=== PATIENT | male | born 1985 | race Caucasian/White ===

== ENCOUNTER 2019-02-06 21:24 | Emergency (ER) | payer OTHER ==
[2019-02-06 21:40] VITALS: BP 141/97; PULSE 104; RESP 18; TEMP 98.3
--- NOTE | 2019-02-06 22:05 | ED ---
Extremity Problem HPI - General Chief complaint: Extremity Problem,Nontraumatic Stated complaint: Leg pain Source: patient Mode of arrival: ambulatory Limitations: no limitations - History of Present Illness Initial comments: Michael is a pleasant previously healthy 33-year-old gentleman who presents the emergency department today for evaluation of a bruise in the left popliteal f mary. Patient reports that today he noted this tender bruise, he didn't recall any specific trauma and we discussed this finding with family members a told him he could possibly have a blood clot just come to the ER for evaluation. Patient denies any history of blood clots or clotting disorder, he denies any family history of clotting disorder, he denies any recent immobilization, he is not on any estrogen supplements. Patient reports he doesn't recall any specific trauma but is a physically active gentleman. - Related Data Allergies Allergy/AdvReac Type Severity Reaction Status Date / Time shellfish derived [Shellfish] Allergy Rash/Hives Verified 02/06/19 21:40 Review of Systems ROS Statement: Those systems with pertinent positive or pertinent negative responses have been documented in the HPI. ROS Other: All systems not noted in ROS Statement are negative. Past Medical History Past Medical History: Hypertension History of Any Multi-Drug Resistant Organisms: None Reported Past Surgical History: Orthopedic Surgery Past Psychological History: No Psychological Hx Reported Smoking Status: Never smoker Past Alcohol Use History: None Reported Past Drug Use History: None Reported General Exam - General Exam Comments Initial Comments: Physical Exam GENERAL: Patient is well-developed and well-nourished. Patient is nontoxic and well- hydrated and is in no distress. HENT: Normocephalic, Atraumatic. Poor dentition EYES: PERRL, EOMI PULMONARY: Unlabored respirations. CARDIOVASCULAR: There is a regular rate and rhythm without any murmurs gallops or rubs. ABDOMEN: Nondistended SKIN: Hematoma approximately 3 cm in diameter proximal to the left popliteal fossa on the medial aspect of posterior knee, tender to palpation, no erythema induration or signs of infection or abscess : Deferred NEUROLOGIC: Patient is alert and oriented x3. Moving all extremities spontaneously MUSCULOSKELETAL: Normal extremities with adequate strength and full range of motion. No lower extremity swelling or edema. No calf tenderness. Normal gait PSYCHIATRIC: Normal psychiatric evaluation Limitations: no limitations Course Vital Signs 02/06/19 21:35 Temperature 98.3 F Pulse Rate 104 H Respiratory 18 Rate Blood Pressure 141/97 O2 Sat by Pulse 99 Oximetry Medical Decision Making - Medical Decision Making The patient was seen and evaluated upon arrival to the emergency department. History and physical exam are consistent with a hematoma. Patient has no lower extremity edema no risk factors for DVT Advised the patient at this time I do not feel a ultrasound is indicated as very unlikely he would have a DVT and that he simply has a hematoma likely from some trauma he does not recall patient agrees with this. Patient feels reassured and states he would like to leave as soon as possible so that the room to be used for somebody who really needs it. All questions pertaining care were answered return parameters discussed patient was discharged home in stable condition Disposition Clinical Impression: Hematoma Disposition: HOME SELF-CARE Condition: Stable Instructions (If sedation given, give patient instructions): Hematoma (ED) Is patient prescribed a controlled substance at d/c from ED?: No Referrals: Maria Dolores Mejia MD [Primary Care Provider] - 1-2 days
== END 2019-02-06 22:13 | disposition home or self-care (01) ==
LOC: EC 21:24
DX: S80.02XA Contusion of left knee, initial encounter (principal); Z91.013 Allergy to seafood; X58.XXXA Exposure to other specified factors, initial encounter
CPT/HCPCS: 99283

== ENCOUNTER 2020-02-01 23:03 | Emergency (ER) | payer OTHER ==
[2020-02-01 23:12] VITALS: TEMP 98
--- NOTE | 2020-02-01 23:45 | XR ---
EXAMINATION TYPE: XR ribs RT w pa chest xray DATE OF EXAM: 02/01/2020 COMPARISON: None HISTORY: Rib pain TECHNIQUE: FINDINGS: Heart and mediastinum are normal. Lungs are clear. Diaphragm is normal. Pulmonary vasculari ty is normal. On the oblique view there appears to be fracture of the anterior right sixth and seventh ribs. IMPRES DAVI: Nondisplaced anterior right rib fractures. No cardiopulmonary disease.
[2020-02-02] MEDS ORDERED: SODIUM CHLORIDE 0.9% 500 ML 500 ML IV ONE (00:17)
[2020-02-02 00:38] LABS: Basophils # (A) 0.1 k/uL (0-0.2); Basophils % (A) 1 %; Eosinophils # (A) 0.3 k/uL (0-0.7); Eosinophils % (A) 2 %; HGB 14.5 gm/dL (13.0-17.5); Lymphocytes # (A) 1.4 k/uL (1.0-4.8); Lymphocytes % (A) 14 %; MCH 27.4 pg (25.0-35.0); MCHC 32.1 g/dL (31.0-37.0); MCV 85.2 fL (80.0-100.0); Mean Platelet Volume 7.1; Monocytes # (A) 0.6 k/uL (0-1.0); Monocytes % (A) 6 %; Neutrophils # (A) 7.7 k/uL (1.3-7.7); Neutrophils % (A) 76 %; Platelet Count 220 k/uL (150-450); RBC 5.29 m/uL (4.30-5.90); RDW 13.5 % (11.5-15.5); WBC 10.1 k/uL (3.8-10.6)
[2020-02-02 00:46] LABS: ALT 30 U/L (4-49); AST 27 U/L (17-59); African American GFR (CKD) >90 (>60 ml/min/1.73 sqM); Albumin 4.5 g/dL (3.5-5.0); Alkaline Phosphatase 54 U/L (38-126); Anion Gap 7 mmol/L; Blood Urea Nitrogen 12 mg/dL (9-20); Calcium 9.7 mg/dL (8.4-10.2); Carbon Dioxide 27 mmol/L (22-30); Chloride 106 mmol/L (98-107); Glucose 105 mg/dL (74-99); Non-African American GFR(CKD) >90 (>60 ml/min/1.73 sqM); Potassium 3.7 mmol/L (3.5-5.1); Sodium 140 mmol/L (137-145); Total Bilirubin 0.4 mg/dL (0.2-1.3); Total Protein 6.8 g/dL (6.3-8.2)
--- NOTE | 2020-02-02 01:10 | CT ---
EXAMINATION TYPE: CT chest angio for PE DATE OF EXAM: 02/02/2020 COMPARISON: HISTORY: R/O PE, Chest pain, Rt side rib pain CT DLP: 401.60 mGycm Automated exposure control for dose reduction was used. CONTRAST: Performed with IV Contrast, patient injected with 70 mL of Isovue 370. There are 3-D post processed images. The lungs are clear of infiltrate. There is no pleural effusion or pneumothorax. Heart size is normal . There are no hilar masses. There is no mediastinal adenopathy. There is intact thoracic aorta. There is no aneurysm or dissection. There is normal contrast opacification of the pulmonary arteries. There are no filling defects. Thoracic vertebra have normal spacing and alignment. There is no compression fracture. The upper abdo venice soft tissues are intact. The ribs appear intact. Shoulder joints appear intact. IMPRESSION: Negative exam. No evidence of pulmonary embolism. I do not see a cause for right-sided rib pain.
--- NOTE | 2020-02-02 01:14 | ED ---
Recheck HPI - General Chief Complaint: Recheck/Abnormal Lab/Rx Stated Complaint: Rib Pain Time Seen by Provider: 02/01/20 23:39 Source: patient Mode of arrival: ambulatory Limitations: no limitations - History of Present Illness Initial Comments: 34-year-old male presenting today for chief complaint of right rib pain patient states the pain occurred after tubing be states he is not sure if it's from hitting the water of the tube x 3 days. Patient states his nose and occasional his about hour felt lightheaded today like he was going to pass out. Patient states he takes a deep breath there is very localized anterior right rib pain mid chest. Patient has a left-sided chest pain or pressure. Patient denies any leg swelling denies any syncopal episodes. Remaining review of systems negative upon arrival patient appears well no acute distress he denies any injury to the head and neck low back legs or upper extremity. - Related Data Allergies Allergy/AdvReac Type Severity Reaction Status Date / Time shellfish derived [Shellfish] Allergy Rash/Hives Verified 02/01/20 23:12 Review of Systems ROS Statement: Those systems with pertinent positive or pertinent negative responses have been documented in the HPI. ROS Other: All systems not noted in ROS Statement are negative. Past Medical History Past Medical History: Hypertension History of Any Multi-Drug Resistant Organisms: None Reported Past Surgical History: Orthopedic Surgery Past Psychological History: Anxiety Smoking Status: Light tobacco smoker Past Alcohol Use History: None Reported Past Drug Use History: Marijuana General Exam - General Exam Comments Initial Comments: General: The patient is awake and alert, in no distress, and does not appear acutely ill. Eye: Pupils are equal, round and reactive to light, extra-ocular movements are intact. No nystagmus. There is normal conjunctiva bilaterally. No signs of icterus. Cardiovascular: There is a regular rate and rhythm. No murmur, rub or gallop is appreciated. Respiratory: Lungs are clear to auscultation, respirations are non-labored, breath sounds are equal. No wheezes, stridor, rales, or rhonchi. Musculoskeletal: Normal inspection of the chest, back. Pain to palpation around rib #6, no flail chest. Normal ROM, no tenderness. Strength 5/5. Sensation intact. Radial pulses equal bilaterally 2+. Neurological: A&O x 3. CN II-XII intact grossly, There are no obvious motor or sensory deficits. Coordination appears grossly intact. Speech is normal. Skin: Skin is warm and dry and no rashes or lesions are noted. Psychiatric: Cooperative, appropriate mood & affect, normal judgment. Limitations: no limitations Course Vital Signs 02/01/20 02/02/20 23:10 02:20 Temperature 98 F 98 F Pulse Rate 103 H 80 Respiratory 20 16 Rate Blood Pressure 135/86 142/98 O2 Sat by Pulse 100 96 Oximetry Medical Decision Making - Medical Decision Making 34-year-old male presented for right anterior rib pain on x-ray there was an area suspicious for nondisplaced rib fractures of 6 and 7. However there is no noted fractures observed on CT angiography. There is no pneumothorax. I do suspect that there is a possible nondisplaced fractures. Patient's vital signs stable EKG within normal limits. He does not appear in respiratory distress minimal splinting patient be provided incentive spirometer to encourage deep breaths and prevent splinting. Discussed importance of return for shortness of breath/fevers, worsening pain. additioanl presyncopal episdoes. Patient verbalized understanding. Case discussed wtih Dr Acevedo who is agreeable to care plan and discharge at this time. - Lab Data Result diagrams: 02/02/20 00:26 02/02/20 00:26 Lab Results 02/02/20 02/02/20 Range/Units 00:26 00:26 WBC 10.1 (3.8-10.6) k/uL RBC 5.29 (4.30-5.90) m/uL Hgb 14.5 (13.0-17.5) gm/dL Hct 45.0 (39.0-53.0) % MCV 85.2 (80.0-100.0) fL MCH 27.4 (25.0-35.0) pg MCHC 32.1 (31.0-37.0) g/dL RDW 13.5 (11.5-15.5) % Plt Count 220 (150-450) k/uL Neutrophils % 76 % Lymphocytes % 14 % Monocytes % 6 % Eosinophils % 2 % Basophils % 1 % Neutrophils # 7.7 (1.3-7.7) k/uL Lymphocytes # 1.4 (1.0-4.8) k/uL Monocytes # 0.6 (0-1.0) k/uL Eosinophils # 0.3 (0-0.7) k/uL Basophils # 0.1 (0-0.2) k/uL Sodium 140 (137-145) mmol/L Potassium 3.7 (3.5-5.1) mmol/L Chloride 106 (98-107) mmol/L Carbon Dioxide 27 (22-30) mmol/L Anion Gap 7 mmol/L BUN 12 (9-20) mg/dL Creatinine 0.95 (0.66-1.25) mg/dL Est GFR (CKD-EPI)AfAm >90 (>60 ml/min/1.73 sqM) Est GFR (CKD-EPI)NonAf >90 (>60 ml/min/1.73 sqM) Glucose 105 H (74-99) mg/dL Calcium 9.7 (8.4-10.2) mg/dL Total Bilirubin 0.4 (0.2-1.3) mg/dL AST 27 (17-59) U/L ALT 30 (4-49) U/L Alkaline Phosphatase 54 (38-126) U/L Total Protein 6.8 (6.3-8.2) g/dL Albumin 4.5 (3.5-5.0) g/dL Disposition Clinical Impression: Right rib fracture, Pre-syncope Disposition: HOME SELF-CARE Condition: Good Instructions (If sedation given, give patient instructions): Rib Fracture (ED) Additional Instructions: Please use medication as discussed. Please follow-up with family doctor in the next 2 days. Please return to emergency room if the symptoms increase or worsen or for any other concerns. Is patient prescribed a controlled substance at d/c from ED?: No Referrals: Maria Dolores Mejia MD [Primary Care Provider] - 1-2 days Time of Disposition: 01:14
[2020-02-02 02:32] VITALS: BP 142/98; PULSE 80; RESP 16
== END 2020-02-02 02:20 | disposition home or self-care (01) ==
LOC: EC 23:03
DX: S22.41XA Multiple fractures of ribs, right side, initial encounter for closed fracture (principal); F17.200 Nicotine dependence, unspecified, uncomplicated; R55 Syncope and collapse; Z91.013 Allergy to seafood; X58.XXXA Exposure to other specified factors, initial encounter
CPT/HCPCS: 36415; 71275; 80053; 85025; 93005; 99284

== ENCOUNTER → 2022-05-23 | Outpatient (CLI) | payer OTHER ==
--- NOTE | 2022-05-24 08:26 | CT ---
EXAMINATION TYPE: CT wrist RT wo con CT DLP: 160 mGycm, Automated exposure control for dose reduction was used. DATE OF EXAM: 05/23/2022 6:41 PM COMPARISON: None CLINICAL INDICATION:Male, 36 years old with history of S62.141A, R WRIST DISP FX OF BODY OF HAMATE MARTINEZ NE, RT wrist/ hand pain and swelling. hamate bone fx. per order attent to metacarpl bases. TECHNIQUE: Axial images were obtained of the right wrist. Additional coronal and sagittal reformatte d images and soft tissue and bone window were obtained for review. 3-D reconstruction was created on a separate workstation. Contrast used: None. Oral contrast used: None. FINDINGS: There is an acute fracture through the fourth and fifth digit metacarpal bases with intra-a rticular extension, best appreciated on series 9 image 61. Comminuted fracture of the posterior aspec t of the hamate bone. With intra-articular extension. Remote appearing fracture of the hook of the hamate bone with well-corticated fragment. IMPRESSION: 1. Comminuted fracture of the posterior aspect of the hamate with remote appearing fracture of the h ook of the hamate bone with well-corticated fragment. 2. Fracture through the fourth and fifth digit metacarpal bases with intra-articular extension
== END | disposition home or self-care (01) ==
LOC: RADCTMAIN 18:20
PROVIDERS: ATTEND Orthopaedic Surgery Hand Surgery
DX: S62.141A Displaced fracture of body of hamate [unciform] bone, right wrist, initial encounter for closed fracture (principal); X58.XXXA Exposure to other specified factors, initial encounter

== ENCOUNTER 2024-09-29 23:16 | Emergency (ER) | payer OTHER ==
[2024-09-30] MEDS: SODIUM CHLORIDE 0.9% 1,000 ML IV ONE (00:09)
[2024-09-30] MEDS: SODIUM CHLORIDE 0.9% 500 ML 500 ML IV ONE (00:09)
[2024-09-30] MEDS: diphenhydrAMINE 50 MG/ML 1 ML VIAL IVP STA (00:11)
[2024-09-30] MEDS: KETOROLAC 15 MG/ML 1 ML VIAL IVP STA (00:12)
[2024-09-30] MEDS: METOCLOPRAMIDE 5 MG/ML 2 ML VIAL IVP STA (00:15)
--- NOTE | 2024-09-30 00:21 | ED ---
Chest Pain HPI - General Chief Complaint: Chest Pain Stated Complaint: Nausea,Chest tightness, Hallucinations Time Seen by Provider: 09/29/24 23:22 Source: patient, RN notes reviewed Mode of arrival: ambulatory Limitations: no limitations - History of Present Illness Initial Comments: 38-year-old male presents emergency department chief complaint of chest comfort, migraine headache, body aches slight cough. Patient states he is has not felt well since [place] this morning he normally has migraines is not a typical headache for him. Patient states he was seen in urgent care had nasal swab which was negative states the headache has waxed and waned he has not taken anything so far other than earlier Motrin. Patient reports no known fever states chest pain is anterior is worse with movement there is a back pain patient does have a history of hypertension on lisinopril he states he occasionally smokes. Patient denies any prior cardiac disease. - Related Data Allergies Allergy/AdvReac Type Severity Reaction Status Date / Time shellfish derived [Shellfish] Allergy Rash/Hives Verified 09/29/24 23:20 Review of Systems ROS Statement: Those systems with pertinent positive or pertinent negative responses have been documented in the HPI. ROS Other: All systems not noted in ROS Statement are negative. EKG Findings - EKG Comments: EKG Findings:: EKG performed at 23: 25 sinus tachycardia rate of 101 MI 132 QRS 89 QT/QTc 320/[address] elevation depression normal axis. - EKG Results: EKG: interpreted by JOSE J Past Medical History Past Medical History: Hypertension History of Any Multi-Drug Resistant Organisms: None Reported Past Surgical History: Orthopedic Surgery Past Psychological History: Anxiety Past Alcohol Use History: Occasional Past Drug Use History: Marijuana General Exam Limitations: no limitations General appearance: alert, in no apparent distress Head exam: Present: atraumatic, normocephalic, normal inspection Eye exam: Present: normal appearance, PERRL, EOMI. Absent: scleral icterus, conjunctival injection, periorbital swelling ENT exam: Present: normal exam, normal oropharynx, mucous membranes moist Neck exam: Present: normal inspection, full ROM. Absent: tenderness, meningismus, lymphadenopathy Respiratory exam: Present: normal lung sounds bilaterally. Absent: respiratory distress, wheezes, rales, rhonchi, stridor Cardiovascular Exam: Present: normal rhythm, tachycardia, normal heart sounds. Absent: systolic murmur, diastolic murmur, rubs, gallop, clicks Neurological exam: Present: alert, oriented X3, CN II-XII intact, reflexes normal. Absent: motor sensory deficit Course Vital Signs 09/29/24 09/30/24 09/30/24 23:17 00:22 00:27 Temperature 97.3 F L 98.2 F Pulse Rate 102 H 108 H Pulse Rate [ 106 H Armoured Car Escort ] Respiratory 20 20 Rate Blood Pressure 153/92 134/82 O2 Sat by Pulse 100 99 Oximetry 09/30/24 09/30/24 00:29 01:31 Temperature Pulse Rate 90 Pulse Rate [ Armoured Car Escort ] Respiratory 22 Rate Blood Pressure O2 Sat by Pulse 99 Oximetry Chest Pain MDM - MDM Was pt. sent in by a medical professional or institution (, PA, WIPER BLENDER, urgent care, hospital, or [facility]...) When possible be specific @ -No Did you speak to anyone other than the patient for history (EMS, parent, family, police, friend...)? What history was obtained from this source @ -No Did you review nursing and triage notes (agree or disagree)? Why? @ -I reviewed and agree with nursing and triage notes Were old charts reviewed (outside hosp., previous admission, EMS record, old EKG, old radiological studies, urgent care reports/EKG's, [facility] records)? Report findings @ -No old charts were reviewed Differential Diagnosis (chest pain, altered mental status, abdominal pain women, abdominal pain men, vaginal bleeding, weakness, fever, dyspnea, syncope, headache, dizziness, GI bleed, back pain, seizure, CVA, palpatations, mental health, musculoskeletal)? @COVID 19, RSV, influenza, pneumonia, acute bronchitis, URI, this list is not all inclusive differential Chest Pain: Stable Angina, Unstable Angina, STEMI, NSTEMI Aortic Dissection, Pneumothorax, Musculoskeletal, Esophageal Spasm GERD, Cholecystitis, Pancreatitis, Zoster, this is not meant to be an all-inclusive list. EKG interpreted by me (3pts min.). @ -As above X-rays interpreted by me (1pt min.). @ -Chest x-ray shows no acute cardiopulmonary process. CT interpreted by me (1pt min.). @ -None done U/S interpreted by me (1pt. min.). @ -None done What testing was considered but not performed or refused? (CT, X-rays, U/S, labs)? Why? @ -None What meds were considered but not given or refused? Why? @ -None Did you discuss the management of the patient with other professionals (professionals i.e. , PA, WIPER BLENDER, lab, RT, psych nurse, social security assessor, automation controls specialist, teacher, operations officer afloat, piano case and bench assembler)? Give summary @ -No Was smoking cessation discussed for >3mins.? @ -No Was critical care preformed (if so, how long)? @ -No Were there social determinants of health that impacted care today? How? (Homelessness, low income, unemployed, alcoholism, drug addiction, transportation, low edu. Level, literacy, decrease access to med. care, snf, rehab)? @ -No Was there de-escalation of care discussed even if they declined (Discuss DNR or withdrawal of care, Hospice)? DNR status @ -No What co-morbidities impacted this encounter? (DM, HTN, Smoking, COPD, CAD, Cancer, CVA, ARF, Chemo, Hep., AIDS, mental health diagnosis, sleep apnea, morbid obesity)? @ -None Was patient admitted / discharged? Hospital course, mention meds given and route, prescriptions, significant lab abnormalities, going to OR and other pertinent info. @ -[Discharge patient feels greatly improved this time he has no complaints of headache or chest pain. Workup including D-dimer, troponin is negative. Patient had viral URI type symptoms more likely causing his symptoms. Patient agrees with plan of discharge and close follow-up. Undiagnosed new problem with uncertain prognosis? @ -No Drug Therapy requiring intensive monitoring for toxicity (Heparin, Nitro, Insulin, Cardizem)? @ -No Were any procedures done? @ -No Diagnosis/symptom? @ -Atypical chest pain, viral URI Acute, or Chronic, or Acute on Chronic? @ -Acute Uncomplicated (without systemic symptoms) or Complicated (systemic symptoms)? @ -Complicated Side effects of treatment? @ -No Exacerbation, Progression, or Severe Exacerbation? @ -No Poses a threat to life or bodily function? How? (Chest pain, [place], [place], pneumonia, PE, COPD, DKA, ARF, appy, cholecystitis, CVA, Diverticulitis, Homicidal, Suicidal, threat to staff... and all critical care pts) @ -No Disposition Clinical Impression: Atypical chest pain, Viral illness Disposition: HOME SELF-CARE Condition: Stable Instructions (If sedation given, give patient instructions): Chest Pain (ED) Additional Instructions: Please return to the Emergency Department if symptoms worsen or any other concerns. Is patient prescribed a controlled substance at d/c from ED?: No Referrals: Maria Dolores Mejia MD [Primary Care Provider] - 1-2 days Time of Disposition: 02:13
[2024-09-30 00:36] LABS: Basophils % (A) 0 %; Eosinophils # (A) 0.2 k/uL (0-0.7); Eosinophils % (A) 2 %; HCT 47.1 % (39.0-53.0); HGB 15.5 gm/dL (13.0-17.5); Lymphocytes # (A) 0.4 k/uL (1.0-4.8); Lymphocytes % (A) 4 %; MCHC 32.9 g/dL (31.0-37.0); MCV 85.2 fL (80.0-100.0); Mean Platelet Volume 7.6; Monocytes # (A) 0.3 k/uL (0-1.0); Monocytes % (A) 3 %; Neutrophils % (A) 91 %; Platelet Count 171 k/uL (150-450); RBC 5.53 m/uL (4.30-5.90); RDW 13.8 % (11.5-15.5)
[2024-09-30 00:52] LABS: Partial Thromboplastin Time 26.1 sec (22.0-30.0); Prothrombin Time 11.1 sec (10.0-12.5)
--- NOTE | 2024-09-30 00:56 | XR ---
EXAM: XR Chest, 2 Views CLINICAL HISTORY: ITS.REASON XR Reason: Chest Pain TECHNIQUE: Frontal and lateral views of the chest. COMPARISON: No relevant prior studies available. FINDINGS: Lungs: Unremarkable. No consolidation. Pleural space: Unremarkable. No pneumothorax. Heart: Unremarkable. No cardiomegaly. Mediastinum: Unremarkable. Bones/joints: Unremarkable. IMPRESSION: Normal chest x-rays.
[2024-09-30 01:21] LABS: Influenza A Not Detected (Not Detectd); Influenza B Not Detected (Not Detectd); RSV Not Detected (Not Detectd)
[2024-09-30 01:33] LABS: ALT 32 U/L (4-49); AST 22 U/L (17-59); African American GFR (CKD) >90 (>60 ml/min/1.73 sqM); Albumin 4.4 g/dL (3.5-5.0); Alkaline Phosphatase 59 U/L (38-126); Anion Gap 12 mmol/L; Blood Urea Nitrogen 19 mg/dL (9-20); Calcium 9.1 mg/dL (8.4-10.2); Carbon Dioxide 21 mmol/L (22-30); Chloride 102 mmol/L (98-107); Glucose 132 mg/dL (74-99); Magnesium 1.7 mg/dL (1.6-2.3); Non-African American GFR(CKD) >90 (>60 ml/min/1.73 sqM); Sodium 135 mmol/L (137-145); Total Bilirubin 1.2 mg/dL (0.2-1.3); Total Protein 6.8 g/dL (6.3-8.2)
[2024-09-30 02:50] VITALS: BP 134/85; PULSE 96; RESP 17; TEMP 99.1
== END 2024-09-30 02:50 | disposition home or self-care (01) ==
LOC: EC 23:16
DX: R07.89 Other chest pain (principal); B34.9 Viral infection, unspecified; R00.0 Tachycardia, unspecified
CPT/HCPCS: 99285 ×2; 36415; 93005; 85379; 80053; 83735; 84484; 85025; 85610; 85730; 87636; 71046; 96374; 96375 ×2; 96361; J1200; J2765; J1885